=== PATIENT | female | born 2000 | race Caucasian/White ===

== ENCOUNTER 2019-03-06 20:34 | Inpatient (IN) ==
[~2019-03-06 20:34] MED LIST: ETOMIDATE 2 MG/ML 20 ML VIAL IV ONE; ROCURONIUM BROMIDE 10 MG/ML 10 ML VIAL IV ONE
[2019-03-06] MEDS ORDERED: SODIUM CHLORIDE 0.9% 1000ML 1,000 ML IV ONE (20:41)
[2019-03-06] MEDS ORDERED: RAPID SEQUENCE INDUCTION BAG ONE (20:49)
[2019-03-06] MEDS ORDERED: PROPOFOL IV EMULSION 10 MG/ML 100 ML VIAL IV ONE (20:59)
--- NOTE | 2019-03-06 21:27 | CT Scan Report ---
CT OF THE HEAD WITHOUT CONTRAST CLINICAL HISTORY: Unresponsive. Evaluate for bleed. COMPARISON STUDY: No previous studies for comparison. CT DOSE: 537.48 mGy.cm TECHNIQUE: Helical axial images of the head were obtained without IV contrast. Automated exposure con trol was utilized for the study. A dose lowering technique was utilized adhering to the principles o f ALARA. FINDINGS: No acute intracranial hemorrhage, midline shift or mass effect is present. The ventricular system is unremarkable. The basilar cisterns are patent. No extra-axial collections are present. Ther e are no findings to suggest acute dural sinus thrombosis or acute territorial infarct. No significan t calvarial abnormalities are present. Visualized portions of the sinuses and mastoid air cells are c lear. Exam is mildly compromised by motion artifact. There is mild mucosal thickening within the left maxillary sinus. IMPRESSION: 1. No acute intracranial findings. Exam mildly compromised by motion artifact. 2. No depressed calvarial fracture. Electronically signed by: Bhavik George M.D. 03/06/2019 9:25 PM
--- NOTE | 2019-03-06 21:30 | CT Scan Report ---
CT OF THE CERVICAL SPINE WITHOUT CONTRAST CLINICAL HISTORY: seizure COMPARISON STUDY: No previous studies for comparison. TECHNIQUE: Helical axial images of the cervical spine were obtained without IV contrast. Sagittal a nd coronal reconstructions were viewed. Automated exposure control was utilized for the study. A do se lowering technique was utilized adhering to the principles of ALARA. FINDINGS: Alignment of the cervical spine is anatomic. Vertebral body heights are maintained. No acut e cervical spine fracture or subluxation is present. There is no prevertebral edema. Facet joints are intact. Exam is mildly compromised due to difficulty positioning. Visualized portions of the lung a pices demonstrate interlobular septal thickening with associated airspace opacities. IMPRESSION: 1. No acute cervical spine fracture or subluxation. 2. Interlobular septal thickening with associated airspace opacities within the lung apices. Pulmonar y edema is favored however pneumonia could appear similar. Electronically signed by: Bhavik George M.D. 03/06/2019 9:28 PM
[2019-03-06 21:32] LABS: iSTAT Hemoglobin 15.3 g/dl (12.0-16.0); iSTAT Ionized Calcium 1.15 mmol/l; iSTAT Potassium 3.2 mEq/L (3.3-5.0)
--- NOTE | 2019-03-06 21:32 | XRay Report ---
XR chest 1V portable CLINICAL HISTORY: ett placement COMPARISON STUDY: No previous studies for comparison. FINDINGS: The tip of the endotracheal tube is 4.3 cm on the final image obtained at 9:04 PM. There is no pneumothorax or pleural effusion. There are mild biapical opacities. Cardiomediastinal silhouette is unremarkable. IMPRESSION: 1. Tip of endotracheal tube 4.3 cm above the roberto on the final image. 2. No pneumothorax. 3. Mild biapical airspace opacities. Electronically signed by: Bhavik George M.D. 03/06/2019 9:31 PM
[2019-03-06 21:35] LABS: Basophils # (auto) 0.02 K/uL (0-0.2); Basophils % (auto) 0.2 %; Eosinophils # (auto) 0.03 K/uL (0-0.5); Eosinophils % (auto) 0.3 %; Hematocrit (blood only) 41.9 % (37-47); Hemoglobin 15.3 g/dL (12.0-16.0); Immature Granulocytes # (auto) 0.01 K/uL (0.00-0.02); Immature Granulocytes % (auto) 0.1 %; Lymphocytes # (auto) 1.59 K/uL (1.2-3.4); Lymphocytes % (auto) 14.2 %; Mean Corpuscular Hemoglobin 32.7 pg (25-34); Mean Corpuscular Hgb Conc 36.5 g/dL (32-36); Mean Corpuscular Volume 89.5 fL (80-100); Mean Platelet Volume 8.7 fL (7.4-10.4); Monocytes # (auto) 0.65 K/uL (0.11-0.59); Monocytes % (auto) 5.8 %; Neutrophils % (auto) 79.4 %; Platelet Count 209 K/uL (130-400); RDW Coefficient of Variation 12.3 % (11.5-14.5); RDW Standard Deviation 39.2 fL (36.4-46.3); Red Blood Count 4.68 M/uL (4.2-5.4)
[2019-03-06 21:46] LABS: Pregnancy Test, Serum Negative (Negative)
[2019-03-06 21:52] LABS: Albumin Level 3.7 gm/dl (3.4-5.0); BUN Creatinine Ratio 7.7 (10-20); Bilirubin Direct 0.2 mg/dl (0-0.2); Calcium 8.8 mg/dl (8.5-10.1); Creatinine Clr Calc Pharmacy 81.6 ml/min; Est GFR (African American) 90.6; Est GFR (Non-African American) 78.2; Potassium 2.9 mmol/L (3.5-5.1)
[2019-03-06 21:55] LABS: Bilirubin,Total 0.5 mg/dl (0.2-1); Total Protein 7.3 gm/dl (6.4-8.2)
[2019-03-06] MEDS: POTASSIUM CHLORIDE / WTR 10 MEQ/100 ML PLCT IV SCH ×2 (22:05→23:21)
[2019-03-06 22:06] LABS: Appearance Urine Clear (Clear); Bacteria Urine Automated Negative (Negative); Bilirubin Urine Negative (Negative); Blood Urine Negative (Negative); Color Urine Yellow; Epithelial Cell Urine Auto >30 /lpf (0-5); Glucose Urine UA Negative (Negative); Ketones Urine Negative (Negative); Leukocyte Esterase Urine Negative (Negative); Nitrite Urine Negative (Negative); Protein Urine 2+ (Negative); RBC Urine Automated 0-4 /hpf (0-4); Specific Gravity Urine 1.015 (1.000-1.030); Urobilinogen Urine Negative (Negative); pH Urine 5.5 (4.5-7.5)
[2019-03-06 22:21] LABS: Amphetamines+Metham, Urine Neg (Neg); Barbiturates, Urine Neg (Neg); Benzodiazepine, Urine Neg (Neg); Cocaine, Urine Neg (Neg); MDMA (Ecstacy), Urine Neg (Neg); Methadone, Urine Neg (Neg); Opiate, Urine Neg (Neg); Phencyclidine, Urine Neg (Neg)
[2019-03-06 22:29] LABS: Acetaminophen < 2 ug/ml (10-30); Salicylate < 1.7 mg/dl (2.8-20)
[2019-03-06 22:31] LABS: Renal Epithelial Cells Urine 0-5 /lpf (0-5)
[2019-03-06] MEDS ORDERED: fentaNYL DRIP 1,250 MCG/250 ML BAG IV SCH (22:45)
--- NOTE | 2019-03-06 22:45 | History & Physical Report ---
Date of Service March 06, 2019 Assessment & Plan (1) Status epilepticus: Simi is a 18-year-old female with a past medical history of mitral valve prolapse who was brought to the emergency department today due to a new onset seizure. ED Course: Patient arrived to emergency department unresponsive, incontinent of urine, and posturing. She received propofol and was subsequently intubated. She was also given a 1g IV bolus of Keppra. Status epilepticus -admit to ICU -Patient sedated and intubated, management per ICU -loaded with Keppra -Patient has no history of prior seizures, or family history of seizures -CT brain without any acute abnormality -Urine toxicology negative -Apart from low potassium, no other electrolyte abnormalities noted -CT angio of head and neck ordered -EEG ordered -Neurology consulted Hypokalemia -Potassium 2.9 on admission, repleted in ED Shortness of breath -Patient's boyfriend reports a recent history of shortness of breath -CT of C-spine revealed opacities in bilateral apices - will order CT of chest to further evaluate for pneumonia Mitral valve prolapse -Stable, follows with cardiology in [place] CODE STATUS: Full DVT prophylaxis: SCDs Disposition: Admit to ICU (2) Altered mental status: (3) Hypokalemia: (4) Mitral valve prolapse: History of Present Illness Chief Complaint: Seizure, unresponsive Primary Care Provider: NO PCP Simi is a 18-year-old female with a past medical history of mitral valve prolapse who was brought to the emergency department today due to a new onset seizure. History is largely supplied by her boyfriend, roommate and mother, as the patient is currently intubated. Per her roommate, she was talking to him while making dinner, and suddenly said " oh God," subsequently fell, and started seizing. Her roommate reports that she was unresponsive, her eyes rolled back into her head, she was foaming at the mouth, and she was thrashing her arms and legs. EMS was called, and administered 2 mg of Ativan. Her mother reports that she has no past medical history of seizures, or family history of seizures. Her boyfriend reported that she had been complaining of being short of breath over the past week, stating that she had a cold, with a sore throat and congestion. She participated in a volleyball tournament last weekend, and reportedly endorsed feeling more sore and fatigued after this than usual. She does not have a known history of using recreational drugs, or alcohol. With regards to her history of mitral valve prolapse, she follows with a squad leader in [place]. Her mother reports that the most recent echo was stable, and stated that she was told that they did not need to follow-up with a squad leader again. Past medical history: Mitral valve prolapse Past surgical history: Nil of note Medications: OCP Allergies: No known drug allergies Social history: From [place]. Per friends and family, does not smoke, use alcohol or recreational drugs. Family history: No known family history of seizures Allergies Allergy/AdvReac Type Severity Reaction Status Date / Time No Known Allergies Allergy Unverified 03/07/19 01:00 Home Medications Home Medications Medication Instructions Recorded Confirmed Type Mk-7 Suppliment 0 dose PO DIRECTED 03/06/19 03/06/19 History drospirenone-ethinyl estradiol 1 tab PO DAILY 03/06/19 03/06/19 History [Sadie (26)] ibuprofen 200 mg PO Q6H PRN 03/06/19 03/06/19 History Past Med/Surg History Medical History Mitral valve prolapse Chest pain (Inactive) Family History Other No pertinent family history Social History Preferred Language: Kazakh Communication Ability: Unable to Certified Bench Jeweler Technician Required: No Beliefs That Will Affect Care: None and Yarsani Current Living Situation: Other Feels Safe at Home: Yes and No Is there a partner from a previous relationship who is making you feel unsafe now?: No (Non verbal) Any Concerns about Your Family Situation: No Would You Like to Speak to Someone About Your Situation: No Smoking Status: Smoker, status unknown Review of Systems Review of Systems: Unobtainable due to endotracheal tube Physical Exam Constitutional: WD/WN, vitals as above + mechanically ventilated Eyes: PERRL, conjunctivae normal, anicteric sclerae Respiratory: coarse lung sounds bilaterally, worst at apices of lungs Cardiovascular: Rate/Rhythm: regular rhythm and + tachycardic Extremities: normal capillary refill; no pedal edema Gastrointestinal (Abdomen): Inspection/Auscultation: abdomen normal to inspection Percussion/Palpation: abdomen soft; abdomen nontender, no guarding and abdomen not rigid Skin: no rashes, warm and dry Results & Data Vital Signs (Past 12 Hours) Vital Signs Temp Pulse Resp BP Pulse Ox 03/06/19 21:30 114 H 14 100 03/06/19 21:25 121 H 12 160/123 H 100 03/06/19 21:21 120 H 12 100 03/06/19 21:20 36.4 C L 111 H 13 141/111 H 100 03/06/19 21:15 119 H 12 149/108 H 100 03/06/19 21:10 123 H 12 145/106 H 100 03/06/19 21:05 142 H 18 140/104 H 100 03/06/19 21:00 119 H 24 144/120 H 100 03/06/19 20:55 121 H 17 124/75 100 03/06/19 20:50 120 H 17 124/91 100 Code Status & VTE Plan VTE Prophylaxis Plan VTE Prophylaxis will be ordered: Yes Supervising Physician Co-Signing Physician Notes Patient was seen and examined by me personally. I reviewed the chart, the orders and discussed the case in detail with Dr. Francisco Garay MD . I read this H&P and agree with its contents to entirety. PG Care Time/CCT Total # of Minutes Spent Total Time Spent with Patient: Total time spent is greater than 50% in coordination of care (as documented) at patient's floor/unit and/or counseling p atient: Resident Activity Tracking Resident Involvement: Resident Care Provided Care Provided: Adult Hospital Medicine (1) Altered mental status Altered mental status type: unspecified Qualified Code(s): R41.82 - Altered mental status, unspecified
[2019-03-06 22:46] LABS: D Dimer 1820 ug/L FEU (0-500)
[2019-03-06 22:58] LABS: Partial Thromboplastin Time 26.8 Seconds (21.0-31.0)
[2019-03-06 23:08] LABS: Magnesium 2.2 mg/dl (1.8-2.4)
[2019-03-06] MEDS ORDERED: ICU PROTOCOL FOR HYPERGLYCEMIA PRN (23:11)
[2019-03-06] MEDS ORDERED: NORMOSOL-R 1,000 ML IV SCH (23:15)
[2019-03-06] MEDS ORDERED: LORazepam 2 MG/4 ML VIAL IV STA (23:15)
[2019-03-06] MEDS ORDERED: LORazepam 2 MG/4 ML VIAL ONE (23:17)
[2019-03-06] MEDS ORDERED: OPTIRAY 320 125ml IV PRN (23:37)
[2019-03-07] MEDS ORDERED: LORazepam 2 MG/4 ML VIAL IV STA ×2 (00:09→01:04)
--- NOTE | 2019-03-07 00:14 | Critical Care Consultation ---
Date of Consultation March 07, 2019 Assessment & Plan (1) Altered mental status: Patient presented with altered mental status, decorticate posturing, doll's eyes -Most likely secondary to seizures, patient has no prior history of seizure -CT head and cervical Noncon negative for acute process -CTA head and neck also negative for acute process -Patient was intubated to secure airway -Patient was euglycemic -UDS negative, acetaminophen and salicylates negative, EtOH negative, serum and urine osmole is within normal limits -Patient appeared to have continued seizing despite being treated with propofol drip, 1 g Keppra, IV Ativan -Neurology was contacted and recommended that patient be transferred for continuous EEG monitoring -Patient was given fosphenytoin per [place] neurologist recommendations and transfer to [facility] Supervising Physician Co-Signing Physician Notes I was called for the patient with Bao Ornelas, and agree with findings and plan as documented in the note. Patient came in with new onset seizures. Patient was intubated for airway protection. Patient was on max propofol IV, was given IV levetiracetam but was still seizing. Neurology was consulted and recommended continuous EEG for which the patient needed to be transferred. Patient was transferred to a tertiary facility as documented. I discussed the care of the patient on the phone with Bao Ornelas History of Present Illness Attending Physician: Adán Gannon DO History of Present Illness Ms. Santizo is a 18-year-old female who is a student at [employer] with past medical history of mitral valve prolapse, she sees a pumper hand in [place] which is her home state but is not on medications and is active and plays volleyball. She was having a normal afternoon and was talking to her roommate while making dinner when she reportedly cried out "oh God" and lost consc iousness. Her roommate did not think that she hit her head. EMS responded and reported that the patient appeared to be seizing on arrival and she was given Ativan which they said resulted in some improvement. Upon arrival to the emergency department the patient had decorticate posturing and doll's eyes on exam. She was intubated for airway security. CT head and cervical Noncon were negative for acute process. UDS was negative, LFTs within normal limits, BMP and CBC were unremarkable, urine and serum Osmo's were unremarkable, acetaminophen EtOH and salicylate levels were negative. She was transferred to the ICU following intubation. Of note patient had elevated d-dimer and was taken for CTA of the head and neck which resulted negative for thrombus. The patient appeared to still be seizing on exam despite being on propofol drip and loaded with 1 g Keppra IV along with Ativan. Dr. Sow was consulted and paged. He recommended transfer to tertiary facility for continuous EEG. I contacted [facility] and patient was accepted by Dr. Dipti Roberts with neurology. I spoke with both parents of the patient and updated them with the current plan. The patient was given 1 g fosphenytoin prior to transport per Dr. Roberts's recommendation. The patient was transported via helicopter to [facility] by [facility]. She did not appear to be actively seizing at the time of transport. Allergies Allergy/AdvReac Type Severity Reaction Status Date / Time No Known Allergies Allergy Unverified 03/07/19 01:00 Home Medications Home Medications Medication Instructions Recorded Confirmed Type Mk-7 Suppliment 0 dose PO DIRECTED 03/06/19 03/06/19 History drospirenone-ethinyl estradiol 1 tab PO DAILY 03/06/19 03/06/19 History [Sadie (28)] ibuprofen 200 mg PO Q6H PRN 03/06/19 03/06/19 History Patient History Medical History Mitral valve prolapse Chest pain (Inactive) Family History Other No pertinent family history Social History Preferred Language: Portuguese Communication Ability: Unable to Parks Recreation Director Required: No Beliefs That Will Affect Care: None and Zoroastrianism Current Living Situation: Other Feels Safe at Home: Yes and No Is there a partner from a previous relationship who is making you feel unsafe now?: No (Non verbal) Any Concerns about Your Family Situation: No Would You Like to Speak to Someone About Your Situation: No Smoking Status: Smoker, status unknown Review of Systems Review of Systems: Unobtainable due to endotracheal tube and Unobtainable due to reduced consciousness Physical Exam Eyes: PERRLA ENMT: external ear and nose normal, oropharynx normal Neck: trachea midline, no thyromegaly Respiratory: Lungs clear to auscultation and bilateral breath sounds, symmetrical chest wall rise Cardiovascular: Rate/Rhythm: + tachycardic Heart Sounds: normal S1 and normal S2 Vessels: no JVD Extremities: normal capillary refill Gastrointestinal (Abdomen): normal bowel sounds, soft, nontender, no hepatosplenomegaly Neurologic: Exam limited secondary to sedation/intubation, decorticated posturing on initial exam, now localizes to pain, PERRLA, doll's eyes now absent, moves all extremities, responds to noxious stimuli, does not follow commands Psychiatric: Sedated Genitourinary: Indwelling Figueroa present Results & Data Vital Signs (Past 12 Hours) Vital Signs Temp Pulse Resp BP Pulse Ox 03/07/19 00:11 103 H 14 100 03/07/19 00:02 115 H 16 130/93 100 03/07/19 00:00 120 H 14 100 03/06/19 23:50 120 H 19 100 03/06/19 23:46 111 H 21 123/78 03/06/19 23:45 122 H 24 03/06/19 22:40 115 H 19 100 03/06/19 22:30 125 H 26 H 152/118 H 78 L 03/06/19 22:20 103 H 21 100 03/06/19 22:10 115 H 24 100 03/06/19 22:00 126 H 24 158/113 H 100 03/06/19 21:50 132 H 18 100 03/06/19 21:40 113 H 15 100 03/06/19 21:35 104 H 12 155/120 H 100 03/06/19 21:30 114 H 14 100 03/06/19 21:25 121 H 12 160/123 H 100 03/06/19 21:21 120 H 12 100 03/06/19 21:20 36.4 C L 111 H 13 141/111 H 100 03/06/19 21:15 119 H 12 149/108 H 100 03/06/19 21:10 123 H 12 145/106 H 100 03/06/19 21:05 142 H 18 140/104 H 100 03/06/19 21:00 119 H 24 144/120 H 100 03/06/19 20:55 121 H 17 124/75 100 03/06/19 20:50 120 H 17 124/91 100 PG Care Time/CCT Total # of Minutes Spent Total Time Spent with Patient: Total time spent is greater than 50% in coordination of care (as documented) at patient's floor/unit and/or counseling patient: Critical Care Time: Yes Total Critical Care Time: 65 (1) Altered mental status Altered mental status type: unspecified Qualified Code(s): R41.82 - Altered mental status, unspecified
[2019-03-07] MEDS ORDERED: PROPOFOL 1,000 MG/100 ML VIAL IV SCH (00:15)
[2019-03-07] MEDS ORDERED: FOSPHENYTOIN 1,000 MGPE in SODIUM CHLORIDE 0.9% 50 ML IV ONE (01:45)
--- NOTE | 2019-03-07 02:18 | Emergency Department Note ---
Entered by Ailyn Otoole acting as a scribe for JulioSaurabh History of Present Illness General Chief complaint: Unresponsive Stated complaint: UNRESPONSIVE SEIZURE Source: family, EMS and friends Mode of arrival: EMS History of Present Illness Provider complaint: seizure Onset (ago): hour(s) 1 Location: head Pain Consistency: + other (episode ) Relieved By: + none Exacerbated By: + none The patient is a 18 year old female who presents to the Emergency Room with complaints of seizure episode that occurred at 1940. They report that on arrival the patient was blue. They note that the patient has been taking Ibuprofen for the past several weeks for her headache. They state that the patient has not history of seizure. Per the patients roommates, the patient was making dinner and having a normal conversation when the episode occurred. They state that the patient yelled Oh no and fell backwards. They state that she hit the cabinets behind her. The state that she was unresponsive convulsing uncontrollably. They note that the patient was not drinking or doing drugs prior to the episode. EMS gave her Ativan intravenous which helped the convulsing and seizure-like activity. History is limited due to the patient's clinical presentation. Home Medications Home Medications Medication Instructions Recorded Confirmed Type Mk-7 Suppliment 0 dose PO DIRECTED 03/06/19 03/06/19 History drospirenone-ethinyl estradiol 1 tab PO DAILY 03/06/19 03/06/19 History [Sadie (26)] ibuprofen 200 mg PO Q6H PRN 03/06/19 03/06/19 History Allergies Allergy/AdvReac Type Severity Reaction Status Date / Time No Known Allergies Allergy Unverified 03/07/19 01:00 Past Med/Surg History Medical History Mitral valve prolapse Chest pain (Inactive) Family History Other No pertinent family history Social History Preferred Language: Martiniquais Communication Ability: Unable to Active [employer] Systems Administrator Required: No Beliefs That Will Affect Care: None and Islam Current Living Situation: Other Feels Safe at Home: Yes and No Is there a partner from a previous relationship who is making you feel unsafe now?: No (Non verbal) Any Concerns about Your Family Situation: No Would You Like to Speak to Someone About Your Situation: No Smoking Status: Smoker, status unknown Review of Systems Unobtainable due to cognitive status Physical Exam Vital Signs Vital Signs - 24 hr 03/06/19 20:50 03/06/19 20:55 03/06/19 21:00 Temperature Temperature Source Sepsis Recent Fever Within 48 Hours Sepsis New/Unexplained Change in Mental Status Sepsis Action Taken by Nursing Pulse Rate 120 H 121 H 119 H Pulse Rate from SpO2 Sensor 119 H 122 H 122 H Respiratory Rate 17 17 24 Respiratory Effort / Characteristics Respiratory Depth Respiratory Pattern Blood Pressure 124/91 124/75 144/120 H Blood Pressure Mean 102 91 128 Pulse Oximetry 100 100 100 Oxygen Delivery Method Fraction of Inspired Oxygen 03/06/19 21:05 03/06/19 21:10 03/06/19 21:15 Temperature Temperature Source Sepsis Recent Fever Within 48 Hours Sepsis New/Unexplained Change in Mental Status Sepsis Action Taken by Nursing Pulse Rate 142 H 123 H 119 H Pulse Rate from SpO2 Sensor 143 H 122 H 121 H Respiratory Rate 18 12 12 Respiratory Effort / Characteristics Respiratory Depth Respiratory Pattern Blood Pressure 140/104 H 145/106 H 149/108 H Blood Pressure Mean 116 119 121 Pulse Oximetry 100 100 100 Oxygen Delivery Method Fraction of Inspired Oxygen 03/06/19 21:20 03/06/19 21:21 03/06/19 21:25 Temperature 36.4 C L Temperature Source Oral Sepsis Recent Fever Within 48 Hours No Sepsis New/Unexplained Change in Mental Status Yes Sepsis Action Taken by Nursing No Action Required Pulse Rate 111 H 120 H 121 H Pulse Rate from SpO2 Sensor 112 H 122 H Respiratory Rate 13 12 12 Respiratory Effort / Characteristics Non-Labored Respiratory Depth Normal Respiratory Pattern Regular Blood Pressure 141/111 H 160/123 H Blood Pressure Mean 121 135 Pulse Oximetry 100 100 100 Oxygen Delivery Method Room Air Fraction of Inspired Oxygen 30 03/06/19 21:30 03/06/19 21:35 03/06/19 21:40 Temperature Temperature Source Sepsis Recent Fever Within 48 Hours Sepsis New/Unexplained Change in Mental Status Sepsis Action Taken by Nursing Pulse Rate 114 H 104 H 113 H Pulse Rate from SpO2 Sensor 114 H 103 H 113 H Respiratory Rate 14 12 15 Respiratory Effort / Characteristics Respiratory Depth Respiratory Pattern Blood Pressure 155/120 H Blood Pressure Mean 131 Pulse Oximetry 100 100 100 Oxygen Delivery Method Fraction of Inspired Oxygen 10/01/19 21:50 03/06/19 22:00 03/06/19 22:10 Temperature Temperature Source Sepsis Recent Fever Within 48 Hours Sepsis New/Unexplained Change in Mental Status Sepsis Action Taken by Nursing Pulse Rate 132 H 126 H 115 H Pulse Rate from SpO2 Sensor 131 H 127 H 113 H Respiratory Rate 18 24 24 Respiratory Effort / Characteristics Respiratory Depth Respiratory Pattern Blood Pressure 158/113 H Blood Pressure Mean 128 Pulse Oximetry 100 100 100 Oxygen Delivery Method Fraction of Inspired Oxygen 03/06/19 22:20 03/06/19 22:30 Temperature Temperature Source Sepsis Recent Fever Within 48 Hours Sepsis New/Unexplained Change in Mental Status Sepsis Action Taken by Nursing Pulse Rate 103 H 125 H Pulse Rate from SpO2 Sensor 107 H 98 H Respiratory Rate 21 26 H Respiratory Effort / Characteristics Respiratory Depth Respiratory Pattern Blood Pressure 152/118 H Blood Pressure Mean 129 Pulse Oximetry 100 78 L Oxygen Delivery Method Fraction of Inspired Oxygen GENERAL: She appears distressed. HENT: Evidence of tongue bite. EYES: Horizontal nystagmus. Pupils 3 mm reactive to light bilaterally. CV: Tachycardic rate, regular rhythm, normal heart sounds and intact distal pulses. There is no peripheral edema. Palpable radial pulses bue. PULM/CHEST: Rhonchi bilaterally. ABD: The abdomen is soft. LYMPH: No cervical adenopathy. NEURO: GCS eye subscore is 2. GCS verbal subscore is 2. GCS motor score is 2. SKIN: Skin is warm and dry. She is not diaphoretic. Procedures Intubation Time out performed: Yes sedative: Etomidate Mg Given: 20 paralytic: Rocuronium Mg Given: 70 Laryngoscope: Leticia ET Tube Size: 7.5 ET Tube Uncuffed: Yes Course 2035: The patient was evaluated in room A1, and a complete history and physical examination were performed. There is immediate concern for the patient we had bleed given the sudden onset of her symptoms as well as her decerebrate posturing. Patient was immediately taken for CAT scan of the head. CT scan of the head showed no acute bleed when viewed by me. Friends who came with the patient brought in a medication bottle that was found in the trash for supplement of vitamin K2. They state that the patient has been having bad headaches and been taking a lot of ibuprofen lately. They state that the vitamin supplements they are not sure as its the patient's or if she has been taking it. It is thought that the patient is having a seizure and is in status epilepticus given the report by EMS. Given the patient's low GCS, the patient will be taken back to the resuscitation bay and intubated for airway protection. 2100: The patient was intubated. 25 at the lip. See procedure note. Patient be started on propofol drip. 2124: I discussed the patient's case with Poison Control, they report that the ibuprofen and vitamin K to should not cause seizure-like activity. 2154: Vital signs stable on the patient has on the ventilator. Potassium low at 2.9, will be replaced in the emergency department. Is not thought that the patient's hypokalemia is causing her seizure. I spoke to [facility] ICU, they will accept the patient. I reviewed the patient's case with Dr. Morse- [facility] ICU Attending. He will evaluate the patient for further management. Salicylate and acetaminophen level are still pending. Keppra IV piggyback ordered. Administered Medications Discontinued Medications Sodium Chloride (Nss 1000ml) 1,000 mls @ 999 mls/hr IV .Q1H1M ONE Stop: 03/06/19 21:41 Last Infusion: 03/06/19 23:21 Dose: 0 mls/hr Documented by: [id number] Admin: 03/06/19 21:19 Dose: 999 mls/hr Documented by: [id number] Potassium Chloride (K Jasbir / Wtr) 10 meq in 100 mls @ 100 mls/hr IV Q1H CHRISSIE Stop: 03/06/19 23:59 Last Infusion: 03/07/19 00:24 Dose: 0 mls/hr Documented by: [id number] Admin: 03/06/19 23:21 Dose: 100 mls/hr Documented by: [id number] Infusion: 03/06/19 23:05 Dose: 0 mls/hr Documented by: [id number] Admin: 03/06/19 22:05 Dose: 100 mls/hr Documented by: [id number] Fentanyl Citrate (Fentanyl Drip) 1,250 mcg in 250 mls @ 5 mls/hr IV .Q24H CHRISSIE; Protocol Stop: 03/20/19 22:44 Last Titration: 03/06/19 22:40 Dose: 25 mcg/hr, 5 mls/hr Documented by: [id number] Admin: 03/06/19 22:39 Dose: 25 mcg/hr, 5 mls/hr Documented by: [id number] Cosigned by: [id number] Levetiracetam 1,000 mg/ (Dextrose) 110 mls @ 440 mls/hr IV NOW STA Stop: 03/06/19 22:48 Last Infusion: 03/06/19 23:35 Dose: 0 mls/hr Documented by: [id number] Admin: 03/06/19 23:20 Dose: 440 mls/hr Documented by: [id number] Parenteral Electrolytes (Normosol-R) 1,000 mls @ 125 mls/hr IV .Q8H CHRISSIE Stop: 04/05/19 23:14 Last Admin: 03/06/19 23:39 Dose: 125 mls/hr Documented by: [id number] Lorazepam (Ativan) 2 mg in 4 mls @ 4 mls/min IV NOW STA Stop: 03/06/19 23:16 Last Admin: 03/06/19 23:38 Dose: 4 mls/min Documented by: [id number] Propofol (Diprivan) 1,000 mg in 100 mls @ 1.92 mls/hr IV .Q24H CHRISSIE; Protocol Stop: 03/10/19 00:14 Last Admin: 03/07/19 01:11 Dose: 5 mcg/kg/min, 1.9 mls/hr Documented by: [id number] Cosigned by: [id number] Lorazepam (Ativan) 2 mg in 4 mls @ 4 mls/min IV NOW STA Stop: 03/07/19 00:10 Last Admin: 03/07/19 00:25 Dose: 4 mls/min Documented by: [id number] Lorazepam (Ativan) 2 mg in 4 mls @ 4 mls/min IV NOW STA Stop: 03/07/19 01:05 Last Admin: 03/07/19 01:11 Dose: 4 mls/min Documented by: [id number] Fosphenytoin Sodium 1,000 mgpe (/ Sodium Chloride) 70 mls @ 420 mls/hr IV NOW ONE; Protocol Stop: 03/07/19 01:54 Last Admin: 03/07/19 01:40 Dose: 420 mls/hr Documented by: [id number] Ioversol (Optiray 320 125ml) 118 ml IV ONCE PRN PRN Reason: Interaction Checking Stop: 03/10/19 23:36 Last Admin: 03/06/19 23:37 Dose: 118 ml Documented by: [id number] Lorazepam (Ativan) Confirm Administered Dose 2 mg .ROUTE .STK-MED ONE Stop: 03/06/19 23:18 Last Admin: 03/06/19 23:39 Dose: Not Given Documented by: [id number] Miscellaneous () Confirm Administered Dose 1 ea .ROUTE .STK-MED ONE Stop: 03/06/19 20:50 Last Admin: 03/06/19 21:19 Dose: 1 ea Documented by: [id number] Propofol (Diprivan) Confirm Administered Dose 1,000 mg IV .STK-MED ONE Stop: 03/06/19 21:00 Last Admin: 03/06/19 21:34 Dose: 1,000 mg Documented by: [id number] Cosigned by: [id number] Medical Decision Making Medical Records Attestation: I reviewed the patient's medical records. Home Medications Current Medication List: was personally reviewed by me Laboratory Data Attestation: I reviewed the patient's lab results. Result diagrams: 03/06/19 21:14 03/06/19 21:14 Lab Results 03/06/19 03/06/19 03/06/19 Range/Units 21:14 21:14 21:14 WBC 11.20 H (4.8-10.8) K/uL RBC 4.68 (4.2-5.4) M/uL Hgb 15.3 (12.0-16.0) g/dL POC Hgb (12.0-16.0) g/dl Hct 41.9 (37-47) % POC Hct (37-47) % MCV 89.5 (80-100) fL MCH 32.7 (25-34) pg MCHC 36.5 H (32-36) g/dL RDW Std Deviation 39.2 (36.4-46.3) fL RDW Coeff of Salma 12.3 (11.5-14.5) % Plt Count 209 (130-400) K/uL MPV 8.7 (7.4-10.4) fL Immature Gran % (Auto) 0.1 % Neut % (Auto) 79.4 % Lymph % (Auto) 14.2 % [place] % (Auto) 5.8 % Eos % (Auto) 0.3 % Baso % (Auto) 0.2 % Immature Gran # (Auto) 0.01 (0.00-0.02) K/uL Neut # (Auto) 8.90 H (1.4-6.5) K/uL Lymph # (Auto) 1.59 (1.2-3.4) K/uL [place] # (Auto) 0.65 H (0.11-0.59) K/uL Eos # (Auto) 0.03 (0-0.5) K/uL Baso # (Auto) 0.02 (0-0.2) K/uL PT (9.0-12.0) Seconds INR (0.9-1.1) APTT (21.0-31.0) Seconds PTT Ratio D-Dimer (0-500) ug/L FEU POC Sodium (135-144) mEq/L Sodium 140 (136-145) mmol/L POC Potassium (3.3-5.0) mEq/L Potassium 2.9 L (3.5-5.1) mmol/L POC Chloride (101-112) mEq/L Chloride 108 H (98-107) mmol/L Carbon Dioxide 23 (21-32) mmol/L POC Total CO2 (24-31) mEq/l Anion Gap 9.0 (3-11) POC Anion Gap (16-25) mmol/L POC BUN (7-18) mg/dl BUN 8 (7-18) mg/dl Creatinine 1.03 (0.6-1.2) mg/dl POC Creatinine mg/dl Est Cr Clr Drug Dosing 81.6 ml/min Est GFR ( Amer) 90.6 Est GFR (Non-Af Amer) 78.2 BUN/Creatinine Ratio 7.7 L (10-20) Glucose 127 H (70-99) mg/dl POC Glucose (other) (70-99) mg/dl Osmolality (280-300) mOsm/kg Lactate (0.4-2.0) mmol/L Calcium 8.8 (8.5-10.1) mg/dl POC Ioniz Calcium Kavon mmol/l Magnesium 2.2 (1.8-2.4) mg/dl Total Bilirubin 0.5 (0.2-1) mg/dl Direct Bilirubin 0.2 (0-0.2) mg/dl AST 25 (15-37) U/L ALT 22 (12-78) U/L Alkaline Phosphatase 52 (45-117) U/L Total Creatine Kinase 216 H (26-192) U/L Total Protein 7.3 (6.4-8.2) gm/dl Albumin 3.7 (3.4-5.0) gm/dl Procalcitonin (0-0.5) ng/ml HCG, Qual (Negative) Urine Color Urine Appearance (Clear) Urine pH (4.5-7.5) Ur Specific [place] (1.000-1.030) Urine Protein (Negative) Urine Glucose (UA) (Negative) Urine Ketones (Negative) Urine Blood (Negative) Urine Nitrite (Negative) Urine Bilirubin (Negative) Urine Urobilinogen (Negative) Ur Leukocyte Esterase (Negative) Urine WBC (Auto) (0-5) /hpf Urine RBC (Auto) (0-4) /hpf U Hyaline Cast (Auto) (0-5) /lpf U Epithel Cells (Auto) (0-5) /lpf Urine Bacteria (Auto) (Negative) Ur Renal Epithelial Cell (0-5) /lpf Granular Casts (0) /lpf Urine Osmolality (500-800) mOsm/kg POC Ur Test (NEG) Salicylates < 1.7 L (2.8-20) mg/dl Urine Opiates Screen (Neg) Ur Methadone, Qual (Neg) Acetaminophen < 2 L (10-30) ug/ml Urine Barbiturates (Neg) Ur Phencyclidine (PCP) (Neg) U Amphetamin/Meth Scrn (Neg) MDMA (Ecstasy) Screen (Neg) U Benzodiazepines Scrn (Neg) Ur Cocaine Metabolite (Neg) U Marijuana (THC) Screen (Neg) Ethyl Alcohol mg/dL (0-3) mg/dl 03/06/19 03/06/19 03/06/19 Range/Units 21:14 21:14 21:14 WBC (4.8-10.8) K/uL RBC (4.2-5.4) M/uL Hgb (12.0-16.0) g/dL POC Hgb (12.0-16.0) g/dl Hct (37-47) % POC Hct (37-47) % MCV (80-100) fL MCH (25-34) pg MCHC (32-36) g/dL RDW Std Deviation (36.4-46.3) fL RDW Coeff of Salma (11.5-14.5) % Plt Count (130-400) K/uL MPV (7.4-10.4) fL Immature Gran % (Auto) % Neut % (Auto) % Lymph % (Auto) % [place] % (Auto) % Eos % (Auto) % Baso % (Auto) % Immature Gran # (Auto) (0.00-0.02) K/uL Neut # (Auto) (1.4-6.5) K/uL Lymph # (Auto) (1.2-3.4) K/uL [place] # (Auto) (0.11-0.59) K/uL Eos # (Auto) (0-0.5) K/uL Baso # (Auto) (0-0.2) K/uL PT (9.0-12.0) Seconds INR (0.9-1.1) APTT (21.0-31.0) Seconds PTT Ratio D-Dimer (0-500) ug/L FEU POC Sodium (135-144) mEq/L Sodium (136-145) mmol/L POC Potassium (3.3-5.0) mEq/L Potassium (3.5-5.1) mmol/L POC Chloride (101-112) mEq/L Chloride (98-107) mmol/L Carbon Dioxide (21-32) mmol/L POC Total CO2 (24-31) mEq/l Anion Gap (3-11) POC Anion Gap (16-25) mmol/L POC BUN (7-18) mg/dl BUN (7-18) mg/dl Creatinine (0.6-1.2) mg/dl POC Creatinine mg/dl Est Cr Clr Drug Dosing ml/min Est GFR ( Amer) Est GFR (Non-Af Amer) BUN/Creatinine Ratio (10-20) Glucose (70-99) mg/dl POC Glucose (other) (70-99) mg/dl Osmolality 288 (280-300) mOsm/kg Lactate (0.4-2.0) mmol/L Calcium (8.5-10.1) mg/dl POC Ioniz Calcium Kavon mmol/l Magnesium (1.8-2.4) mg/dl Total Bilirubin (0.2-1) mg/dl Direct Bilirubin (0-0.2) mg/dl AST (15-37) U/L ALT (12-78) U/L Alkaline Phosphatase (45-117) U/L Total Creatine Kinase (26-192) U/L Total Protein (6.4-8.2) gm/dl Albumin (3.4-5.0) gm/dl Procalcitonin (0-0.5) ng/ml HCG, Qual Negative (Negative) Urine Color Urine Appearance (Clear) Urine pH (4.5-7.5) Ur Specific [place] (1.000-1.030) Urine Protein (Negative) Urine Glucose (UA) (Negative) Urine Ketones (Negative) Urine Blood (Negative) Urine Nitrite (Negative) Urine Bilirubin (Negative) Urine Urobilinogen (Negative) Ur Leukocyte Esterase (Negative) Urine WBC (Auto) (0-5) /hpf Urine RBC (Auto) (0-4) /hpf U Hyaline Cast (Auto) (0-5) /lpf U Epithel Cells (Auto) (0-5) /lpf Urine Bacteria (Auto) (Negative) Ur Renal Epithelial Cell (0-5) /lpf Granular Casts (0) /lpf Urine Osmolality (500-800) mOsm/kg POC Ur Test (NEG) Salicylates (2.8-20) mg/dl Urine Opiates Screen (Neg) Ur Methadone, Qual (Neg) Acetaminophen (10-30) ug/ml Urine Barbiturates (Neg) Ur Phencyclidine (PCP) (Neg) U Amphetamin/Meth Scrn (Neg) MDMA (Ecstasy) Screen (Neg) U Benzodiazepines Scrn (Neg) Ur Cocaine Metabolite (Neg) U Marijuana (THC) Screen (Neg) Ethyl Alcohol mg/dL < 3.0 (0-3) mg/dl 03/06/19 03/06/19 03/06/19 Range/Units 21:14 21:19 21:22 WBC (4.8-10.8) K/uL RBC (4.2-5.4) M/uL Hgb (12.0-16.0) g/dL POC Hgb 15.3 (12.0-16.0) g/dl Hct (37-47) % POC Hct 45 (37-47) % MCV (80-100) fL MCH (25-34) pg MCHC (32-36) g/dL RDW Std Deviation (36.4-46.3) fL RDW Coeff of Salma (11.5-14.5) % Plt Count (130-400) K/uL MPV (7.4-10.4) fL Immature Gran % (Auto) % Neut % (Auto) % Lymph % (Auto) % [place] % (Auto) % Eos % (Auto) % Baso % (Auto) % Immature Gran # (Auto) (0.00-0.02) K/uL Neut # (Auto) (1.4-6.5) K/uL Lymph # (Auto) (1.2-3.4) K/uL [place] # (Auto) (0.11-0.59) K/uL Eos # (Auto) (0-0.5) K/uL Baso # (Auto) (0-0.2) K/uL PT 10.0 (9.0-12.0) Seconds INR 1.0 (0.9-1.1) APTT 26.8 (21.0-31.0) Seconds PTT Ratio 1.0 D-Dimer (0-500) ug/L FEU POC Sodium 142 (135-144) mEq/L Sodium (136-145) mmol/L POC Potassium 3.2 L (3.3-5.0) mEq/L Potassium (3.5-5.1) mmol/L POC Chloride 105 (101-112) mEq/L Chloride (98-107) mmol/L Carbon Dioxide (21-32) mmol/L POC Total CO2 22 L (24-31) mEq/l Anion Gap (3-11) POC Anion Gap 19.0 (16-25) mmol/L POC BUN 8 (7-18) mg/dl BUN (7-18) mg/dl Creatinine (0.6-1.2) mg/dl POC Creatinine 1.0 mg/dl Est Cr Clr Drug Dosing ml/min Est GFR ( Amer) Est GFR (Non-Af Amer) BUN/Creatinine Ratio (10-20) Glucose (70-99) mg/dl POC Glucose (other) 127 H (70-99) mg/dl Osmolality (280-300) mOsm/kg Lactate (0.4-2.0) mmol/L Calcium (8.5-10.1) mg/dl POC Ioniz Calcium Kavon 1.15 mmol/l Magnesium (1.8-2.4) mg/dl Total Bilirubin (0.2-1) mg/dl Direct Bilirubin (0-0.2) mg/dl AST (15-37) U/L ALT (12-78) U/L Alkaline Phosphatase (45-117) U/L Total Creatine Kinase (26-192) U/L Total Protein (6.4-8.2) gm/dl Albumin (3.4-5.0) gm/dl Procalcitonin < 0.05 (0-0.5) ng/ml HCG, Qual (Negative) Urine Color Urine Appearance (Clear) Urine pH (4.5-7.5) Ur Specific [place] (1.000-1.030) Urine Protein (Negative) Urine Glucose (UA) (Negative) Urine Ketones (Negative) Urine Blood (Negative) Urine Nitrite (Negative) Urine Bilirubin (Negative) Urine Urobilinogen (Negative) Ur Leukocyte Esterase (Negative) Urine WBC (Auto) (0-5) /hpf Urine RBC (Auto) (0-4) /hpf U Hyaline Cast (Auto) (0-5) /lpf U Epithel Cells (Auto) (0-5) /lpf Urine Bacteria (Auto) (Negative) Ur Renal Epithelial Cell (0-5) /lpf Granular Casts (0) /lpf Urine Osmolality (500-800) mOsm/kg POC Ur Test (NEG) Salicylates (2.8-20) mg/dl Urine Opiates Screen (Neg) Ur Methadone, Qual (Neg) Acetaminophen (10-30) ug/ml Urine Barbiturates (Neg) Ur Phencyclidine (PCP) (Neg) U Amphetamin/Meth Scrn (Neg) MDMA (Ecstasy) Screen (Neg) U Benzodiazepines Scrn (Neg) Ur Cocaine Metabolite (Neg) U Marijuana (THC) Screen (Neg) Ethyl Alcohol mg/dL (0-3) mg/dl 03/06/19 03/06/19 03/06/19 Range/Units 21:22 21:32 21:32 WBC (4.8-10.8) K/uL RBC (4.2-5.4) M/uL Hgb (12.0-16.0) g/dL POC Hgb (12.0-16.0) g/dl Hct (37-47) % POC Hct (37-47) % MCV (80-100) fL MCH (25-34) pg MCHC (32-36) g/dL RDW Std Deviation (36.4-46.3) fL RDW Coeff of Salma (11.5-14.5) % Plt Count (130-400) K/uL MPV (7.4-10.4) fL Immature Gran % (Auto) % Neut % (Auto) % Lymph % (Auto) % [place] % (Auto) % Eos % (Auto) % Baso % (Auto) % Immature Gran # (Auto) (0.00-0.02) K/uL Neut # (Auto) (1.4-6.5) K/uL Lymph # (Auto) (1.2-3.4) K/uL [place] # (Auto) (0.11-0.59) K/uL Eos # (Auto) (0-0.5) K/uL Baso # (Auto) (0-0.2) K/uL PT (9.0-12.0) Seconds INR (0.9-1.1) APTT (21.0-31.0) Seconds PTT Ratio D-Dimer 1820 H* (0-500) ug/L FEU POC Sodium (135-144) mEq/L Sodium (136-145) mmol/L POC Potassium (3.3-5.0) mEq/L Potassium (3.5-5.1) mmol/L POC Chloride (101-112) mEq/L Chloride (98-107) mmol/L Carbon Dioxide (21-32) mmol/L POC Total CO2 (24-31) mEq/l Anion Gap (3-11) POC Anion Gap (16-25) mmol/L POC BUN (7-18) mg/dl BUN (7-18) mg/dl Creatinine (0.6-1.2) mg/dl POC Creatinine mg/dl Est Cr Clr Drug Dosing ml/min Est GFR ( Amer) Est GFR (Non-Af Amer) BUN/Creatinine Ratio (10-20) Glucose (70-99) mg/dl POC Glucose (other) (70-99) mg/dl Osmolality (280-300) mOsm/kg Lactate (0.4-2.0) mmol/L Calcium (8.5-10.1) mg/dl POC Ioniz Calcium Kavon mmol/l Magnesium (1.8-2.4) mg/dl Total Bilirubin (0.2-1) mg/dl Direct Bilirubin (0-0.2) mg/dl AST (15-37) U/L ALT (12-78) U/L Alkaline Phosphatase (45-117) U/L Total Creatine Kinase (26-192) U/L Total Protein (6.4-8.2) gm/dl Albumin (3.4-5.0) gm/dl Procalcitonin (0-0.5) ng/ml HCG, Qual (Negative) Urine Color Yellow Urine Appearance Clear (Clear) Urine pH 5.5 (4.5-7.5) Ur Specific [place] 1.015 (1.000-1.030) Urine Protein 2+ H (Negative) Urine Glucose (UA) Negative (Negative) Urine Ketones Negative (Negative) Urine Blood Negative (Negative) Urine Nitrite Negative (Negative) Urine Bilirubin Negative (Negative) Urine Urobilinogen Negative (Negative) Ur Leukocyte Esterase Negative (Negative) Urine WBC (Auto) 1-5 (0-5) /hpf Urine RBC (Auto) 0-4 (0-4) /hpf U Hyaline Cast (Auto) 10-30 H (0-5) /lpf U Epithel Cells (Auto) >30 H (0-5) /lpf Urine Bacteria (Auto) Negative (Negative) Ur Renal Epithelial Cell 0-5 (0-5) /lpf Granular Casts 1-5 H (0) /lpf Urine Osmolality (500-800) mOsm/kg POC Ur Test (NEG) Salicylates (2.8-20) mg/dl Urine Opiates Screen Neg (Neg) Ur Methadone, Qual Neg (Neg) Acetaminophen (10-30) ug/ml Urine Barbiturates Neg (Neg) Ur Phencyclidine (PCP) Neg (Neg) U Amphetamin/Meth Scrn Neg (Neg) MDMA (Ecstasy) Screen Neg (Neg) U Benzodiazepines Scrn Neg (Neg) Ur Cocaine Metabolite Neg (Neg) U Marijuana (THC) Screen Neg (Neg) Ethyl Alcohol mg/dL (0-3) mg/dl 03/06/19 03/06/19 03/06/19 Range/Units 21:32 21:34 22:30 WBC (4.8-10.8) K/uL RBC (4.2-5.4) M/uL Hgb (12.0-16.0) g/dL POC Hgb (12.0-16.0) g/dl Hct (37-47) % POC Hct (37-47) % MCV (80-100) fL MCH (25-34) pg MCHC (32-36) g/dL RDW Std Deviation (36.4-46.3) fL RDW Coeff of Salma (11.5-14.5) % Plt Count (130-400) K/uL MPV (7.4-10.4) fL Immature Gran % (Auto) % Neut % (Auto) % Lymph % (Auto) % [place] % (Auto) % Eos % (Auto) % Baso % (Auto) % Immature Gran # (Auto) (0.00-0.02) K/uL Neut # (Auto) (1.4-6.5) K/uL Lymph # (Auto) (1.2-3.4) K/uL [place] # (Auto) (0.11-0.59) K/uL Eos # (Auto) (0-0.5) K/uL Baso # (Auto) (0-0.2) K/uL PT (9.0-12.0) Seconds INR (0.9-1.1) APTT (21.0-31.0) Seconds PTT Ratio D-Dimer (0-500) ug/L FEU POC Sodium (135-144) mEq/L Sodium (136-145) mmol/L POC Potassium (3.3-5.0) mEq/L Potassium (3.5-5.1) mmol/L POC Chloride (101-112) mEq/L Chloride (98-107) mmol/L Carbon Dioxide (21-32) mmol/L POC Total CO2 (24-31) mEq/l Anion Gap (3-11) POC Anion Gap (16-25) mmol/L POC BUN (7-18) mg/dl BUN (7-18) mg/dl Creatinine (0.6-1.2) mg/dl POC Creatinine mg/dl Est Cr Clr Drug Dosing ml/min Est GFR ( Amer) Est GFR (Non-Af Amer) BUN/Creatinine Ratio (10-20) Glucose (70-99) mg/dl POC Glucose (other) (70-99) mg/dl Osmolality (280-300) mOsm/kg Lactate 2.5 H* (0.4-2.0) mmol/L Calcium (8.5-10.1) mg/dl POC Ioniz Calcium [place] mmol/l Magnesium (1.8-2.4) mg/dl Total Bilirubin (0.2-1) mg/dl Direct Bilirubin (0-0.2) mg/dl AST (15-37) U/L ALT (12-78) U/L Alkaline Phosphatase (45-117) U/L Total Creatine Kinase (26-192) U/L Total Protein (6.4-8.2) gm/dl Albumin (3.4-5.0) gm/dl Procalcitonin (0-0.5) ng/ml HCG, Qual (Negative) Urine Color Urine Appearance (Clear) Urine pH (4.5-7.5) Ur Specific [place] (1.000-1.030) Urine Protein (Negative) Urine Glucose (UA) (Negative) Urine Ketones (Negative) Urine Blood (Negative) Urine Nitrite (Negative) Urine Bilirubin (Negative) Urine Urobilinogen (Negative) Ur Leukocyte Esterase (Negative) Urine WBC (Auto) (0-5) /hpf Urine RBC (Auto) (0-4) /hpf U Hyaline Cast (Auto) (0-5) /lpf U Epithel Cells (Auto) (0-5) /lpf Urine Bacteria (Auto) (Negative) Ur Renal Epithelial Cell (0-5) /lpf Granular Casts (0) /lpf Urine Osmolality 429 L (500-800) mOsm/kg POC Ur Test NEG (NEG) Salicylates (2.8-20) mg/dl Urine Opiates Screen (Neg) Ur Methadone, Qual (Neg) Acetaminophen (10-30) ug/ml Urine Barbiturates (Neg) Ur Phencyclidine (PCP) (Neg) U Amphetamin/Meth Scrn (Neg) MDMA (Ecstasy) Screen (Neg) U Benzodiazepines Scrn (Neg) Ur Cocaine Metabolite (Neg) U Marijuana (THC) Screen (Neg) Ethyl Alcohol mg/dL (0-3) mg/dl Imaging Data Radiologist's Impression: Radiology results as stated below per my review and the radiologist's interpretation: CT OF THE HEAD WITHOUT CONTRAST CLINICAL HISTORY: Unresponsive. Evaluate for bleed. COMPARISON STUDY: No previous studies for comparison. CT DOSE: 537.48 mGy.cm TECHNIQUE: Helical axial images of the head were obtained without IV contrast. Automated exposure control was utilized for the study. A dose lowering technique was utilized adhering to the principles of ALARA. FINDINGS: No acute intracranial hemorrhage, midline shift or mass effect is present. The ventricular system is unremarkable. The basilar cisterns are patent. No extra-axial collections are present. There are no findings to suggest acute dural sinus thrombosis or acute territorial infarct. No significant calvarial abnormalities are present. Visualized portions of the sinuses and mastoid air cells are clear. Exam is mildly compromised by motion artifact. There is mild mucosal thickening within the left maxillary sinus. IMPRESSION: 1. No acute intracranial findings. Exam mildly compromised by motion artifact. 2. No depressed calvarial fracture. Electronically signed by: Bhavik George M.D. 03/06/2019 9:[address] OF THE CERVICAL SPINE WITHOUT CONTRAST CLINICAL HISTORY: seizure COMPARISON STUDY: No previous studies for comparison. TECHNIQUE: Helical axial images of the cervical spine were obtained without IV contrast. Sagittal and coronal reconstructions were viewed. Automated exposure control was utilized for the study. A dose lowering technique was utilized adhering to the principles of ALARA. FINDINGS: Alignment of the cervical spine is anatomic. Vertebral body heights are maintained. No acute cervical spine fracture or subluxation is present. There is no prevertebral edema. Facet joints are intact. Exam is mildly comp romised due to difficulty positioning. Visualized portions of the lung apices demonstrate interlobular septal thickening with associated airspace opacities. IMPRESSION: 1. No acute cervical spine fracture or subluxation. 2. Interlobular septal thickening with associated airspace opacities within the lung apices. Pulmonary edema is favored however pneumonia could appear similar. Electronically signed by: Bhavik George M.D. 03/06/2019 9:28 PM XR chest 1V portable CLINICAL HISTORY: ett placement COMPARISON STUDY: No previous studies for comparison. FINDINGS: The tip of the endotracheal tube is 4.3 cm on the final image obtained at 9:04 PM. There is no pneumothorax or pleural effusion. There are mild biapical opacities. Cardiomediastinal silhouette is unremarkable. IMPRESSION: 1. Tip of endotracheal tube 4.3 cm above the roberto on the final image. 2. No pneumothorax. 3. Mild biapical airspace opacities. Electronically signed by: Bhavik George M.D. 03/06/2019 9:31 PM ECG Data Attestation: I personally reviewed and interpreted this ECG as follows: Indication: altered mental status Rate (beats per minute): 119 Rhythm: sinus rhythm Findings: + other (WA QR and QTC are within normal limits); no ST depression and no ST elevation Blood Pressure Blood Pressure Findings: Elevated blood pressure Blood Pressure Disposition: elevated BP felt to be situational MDM Narrative 2035: The patient was evaluated in room A1, and a complete history and physical examination were performed. There is immediate concern for the patient we had bleed given the sudden onset of her symptoms as well as her decerebrate posturing. Patient was immediately taken for CAT scan of the head. CT scan of the head showed no acute bleed when viewed by me. Friends who came with the patient brought in a medication bottle that was found in the trash for supplement of vitamin K2. They state that the patient has been having bad headaches and been taking a lot of ibuprofen lately. They state that the vitamin supplements they are not sure as its the patient's or if she has been taking it. It is thought that the patient is having a seizure and is in status epilepticus given the report by EMS. Given the patient's low GCS, the patient will be taken back to the resuscitation bay and intubated for airway protection. 2100: The patient was intubated. 25 at the lip. See procedure note. Patient be started on propofol drip. 2124: I discussed the patient's case with Poison Control, they report that the ibuprofen and vitamin K to should not cause seizure-like activity. 2154: Vital signs stable on the patient has on the ventilator. Potassium low at 2.9, will be replaced in the emergency department. Is not thought that the patient's hypokalemia is causing her seizure. I spoke to [facility], they will accept the patient. I reviewed the patient's case with Dr. Morse- [facility] ICU Attending. He will evaluate the patient for further management. Salicylate and acetaminophen level are still pending. Keppra IV piggyback ordered. Impression & Plan Status epilepticus, Altered mental status, Hypokalemia Critical Care Time Critical Care Time: Yes Total Critical Care Time: 90 I have personally spent 90 minutes of critical care time in the direct management of this patient. This includes bedside care, interpretation of diagnostic studies, and testing, discussion with consultants, patient, and family members, and other required patient management activities. This 90 minutes is in excess of all separately billable procedures. Discharge Plan Visit Data *Final* Discharge Date/Time: 03/06/19 22:48 Chief Complaint: Unresponsive Stated Complaint: UNRESPONSIVE SEIZURE ED Provider: Saurabh Kim Discharge Problem: Status epilepticus, Altered mental status, Hypokalemia Patient Disposition: Admitted As Inpatient Discharge Instructions Interventions: ED Discharge Assessment Last Done: 03/06/19 22:48 Discharge Problem: Altered mental status Qualifiers: Altered mental status type: unspecified Qualified Code(s): R41.82 - Altered mental status, unspecified The scribe's documentation has been prepared under my direction and personally reviewed by me in its entirety. I confirm that the note above accurately reflects all work, treatment, procedures, and medical decision making performed by me.
--- NOTE | 2019-03-07 06:26 | CT Scan Report ---
CT angio head w con CLINICAL HISTORY: 18 years-old Female presenting with ams, unresponsive. TECHNIQUE: Multidetector CT angiography of the head was performed after the administration of intrave nous contrast. 3-D volumetric and/or maximum intensity projection (MIP) images were subsequently scarlet nstructed for review. IV contrast: 118 mL of Optiray 320. One or more dose lowering techniques were u sed consistent with the principles of ALARA (as low as reasonably achievable), including automatic ex posure control, mA or kV adjustment to individual patient size, and/or use of iterative reconstructio n. COMPARISON: Noncontrast CT head performed earlier the same day. CT DOSE (mGy.cm): The estimated cumulative dose is 589.94. FINDINGS: Ems Manager topogram: Endotracheal tube terminates in the midthoracic trachea. Anterior circulation: Intracranial portions of the internal carotid arteries patent to the level of t he termini. Anterior cerebral arteries patent. Middle cerebral arteries patent. Anterior communicatin g artery patent. Posterior circulation: Codominant vertebral arteries. Intradural portions of the vertebral arteries p atent. Posterior inferior cerebellar arteries patent. Basilar artery patent. Anterior inferior cerebe llar arteries poorly visualized. Superior cerebellar arteries patent. Posterior cerebral arteries pat ent. Posterior communicating arteries patent. Dural venous sinuses: Patent. Other: Allowing for the phase of contrast, brain parenchyma within normal limits. Calvarium intact. IMPRESSION: 1. No evidence of aneurysm, focal vessel occlusion, or significant stenosis of the intracranial brayden oumar. Electronically signed by: Jose J Montes M.D. 03/07/2019 6:25 AM
--- NOTE | 2019-03-07 06:29 | CT Scan Report ---
CT angio neck with con CLINICAL HISTORY: 18 years-old Female presenting with AMS. TECHNIQUE: Multidetector CT angiography of the neck was performed after the administration of intrave nous contrast. 3-D volumetric and/or maximum intensity projection (MIP) images were subsequently scarlet nstructed for review. IV contrast: 118 mL of Optiray 320. One or more dose lowering techniques were u sed consistent with the principles of ALARA (as low as reasonably achievable), including automatic ex posure control, mA or kV adjustment to individual patient size, and/or use of iterative reconstructio n. Stenosis measurements were based on NASCET-like criteria (distal lumen diameter as the denominator for stenosis measurement). COMPARISON: None. CT DOSE (mGy.cm): The estimated cumulative dose is 589.94 mGy.cm. FINDINGS: Debrander topogram: Endotracheal tube terminates in the midthoracic trachea. Aortic arch: Normal three-vessel aortic arch with patent origins of the branch vessels. Innominate artery: Patent. Right subclavian artery: Patent. Right common carotid artery: Patent. Right internal and external carotid arteries: Right carotid bifurcation patent. Right internal and ex ternal carotid arteries widely patent. Left common carotid artery: Patent. Left internal and external carotid arteries: Left carotid bifurcation patent. Left internal and exter nal carotid arteries widely patent. Left subclavian artery: Patent. Vertebral arteries: Codominant vertebral arteries. Origins and courses of the bilateral vertebral art eries patent. Other: Mild polypoid mucosal thickening in maxillary sinuses. Soft tissues of the neck normal allowin g for the phase of contrast. Normal cervical spine. Extensive groundglass infiltrates with interlobul ar septal thickening. IMPRESSION: 1. No evidence of dissection, focal vessel occlusion, or significant stenosis of the cervical arteri es. 2. Ground glass infiltrates and interlobular septal thickening at the apices suggests pulmonary kang a or inhalational injury. Electronically signed by: Jose J Montes M.D. 03/07/2019 6:28 AM
[2019-03-07 12:20] LABS: iSTAT Arterial Blood Gas HCO3 22 meg/L (19-24); iSTAT Arterial Blood Gas pCO2 41 mmHg (35-46); iSTAT Arterial Blood Gas pH 7.34 (7.35-7.45); iSTAT Arterial Blood Gas pO2 156 mmHg (80-95); iSTAT Carbon Dioxide 23 mEq/l (24-31)
[2019-03-07 12:21] LABS: iSTAT Sample Type Arterial
--- NOTE | 2019-03-14 06:07 | Discharge Summary ---
Date of Service March 14, 2019 Admission HPI Per Admitting Provider Simi is a 18-year-old female with a past medical history of mitral valve prolapse who was brought to the emergency department today due to a new onset seizure. History is largely supplied by her boyfriend, roommate and mother, as the patient is currently intubated. Per her roommate, she was talking to him while making dinner, and suddenly said " oh God," subsequently fell, and started seizing. Her roommate reports that she was unresponsive, her eyes rolled back into her head, she was foaming at the mouth, and she was thrashing her arms and legs. EMS was called, and administered 2 mg of Ativan. Her mother reports that she has no past medical history of seizures, or family history of seizures. Her boyfriend reported that she had been complaining of being short of breath over the past week, stating that she had a cold, with a sore throat and congestion. She participated in a volleyball tournament last weekend, and reportedly endorsed feeling more sore and fatigued after this than usual. She does not have a known history of using recreational drugs, or alcohol. With regards to her history of mitral valve prolapse, she follows with a tobacco curer in [place]. Her mother reports that the most recent echo was stable, and stated that she was told that they did not need to follow-up with a tobacco curer again. Past medical history: Mitral valve prolapse Past surgical history: Nil of note Medications: OCP Allergies: No known drug allergies Social history: From [place]. Per friends and family, does not smoke, use alcohol or recreational drugs. Family history: No known family history of seizures Admission Exam Per Admitting Provider See H&P Principal Diagnosis Status epilepticus Discharge Data Allergies Allergy/AdvReac Type Severity Reaction Status Date / Time No Known Allergies Allergy Unverified 03/12/19 11:35 Consultations 03/06/19 21:58 ED Decision to Admit Stat 03/06/19 23:11 Consult Case Management - Discharge Planning Routine Consult Medical Chemist Routine Consult Neurology Routine 03/07/19 00:18 Burn CD for patient Stat Ordered Studies 03/06/19 20:39 CT head/brain wo con Stat 03/06/19 20:40 CT cervical spine wo con Stat 03/06/19 23:10 CT angio head w con Urgent CT angio neck with con Urgent Total Time Total Time Spent Total Time Spent (In Minutes): 75 Total Time Includes: Examination of the Patient, Discharge Planning and Com munication With Other Providers Discharge Plan Discharge Items Patient Disposition: Transfer Acute Care Hospital Reason For Visit: SEIZURE,NON-RESPONSIVE Discharge Diagnosis: Status Epilepticus Activity: As commented below Non-emergency contact: Primary Care Provider Call non-emergency contact if: you have any medication questions, your symptoms worsen, your pain is not controlled, your pain is worsening, your pain is unusual for you, your pain is concerning for you, you have a fever, your rectal temperature is above 100.4, your temperature is above 101, your temperature is above 101.5, your wound has increased redness, your wound has increased drainage and your wound pain has increased Follow-up/Referrals: PCP,LUIZA [Primary Care Provider] - Diet: Regular Addtl Attending Provider Instructions: Simi is a 18-year-old female with a past medical history of mitral valve prolapse who was brought to the emergency department today due to a new onset seizure. ED Course: Patient arrived to emergency department unresponsive, incontinent of urine, and posturing. She received propofol and was subsequently intubated. She was also given a 1g IV bolus of Keppra. Status epilepticus -admitted to ICU -Patient sedated and intubated -loaded with Keppra 1g IV -Patient has no history of prior seizures, or family history of seizures -CT brain without any acute abnormality -Urine toxicology negative -Apart from low potassium, no other electrolyte abnormalities noted -CT angio of head and neck ordered - WNL Hypokalemia -Potassium 2.9 on admission, repleted in ED Shortness of breath -Patient's boyfriend reports a recent history of shortness of breath -CT of C-spine revealed opacities in bilateral apices - recommend CT of chest to further evaluate for pneumonia Mitral valve prolapse -Stable, follows with cardiology in [place] Pending Studies at Discharge: No Stand-Alone Forms: My [facility] [employer] Skilled Items Patient informed of condition?: Yes DNR: No Discharge Level of Care: Other Communicable Disease: No Discharge Prognosis: Deteriorating Lines: Peripheral IV Urinary Catheter: Yes Medications and DC Order Prescriptions: Continued drospirenone-ethinyl estradiol [Sadie (28)] 3-0.02 mg Tablet 1 tab PO DAILY RF: 0 No Action levetiracetam 1,000 mg tablet 1,000 mg PO BID RF: 0 Discharge Orders: Discharge Order (Routine); Ordered 03/07/19 Ordered By: Bao Ornelas Admission Data Admit Date/Time: 03/06/19 22:34 Attending Provider: Adán Gannon Admit Provider: Francisco Garay Primary Care Provider: PCP,NO Other Providers: Adán Gannon ; Dayna Scruggs ; Orlando Sow Other Interventions: Discharge Summary Assessment (RN) Last Done: 03/07/19 01:30 DC Date/Time DO NOT enter until pt leaves facility: 03/07/19 01:35
== END 2019-03-07 01:35 | disposition short-term general hospital (02) | DRG 101 ==
LOC: ED 20:34 → MERGE 20:34 → 1E 22:34